=== PATIENT | female | born 2000 | race Caucasian/White ===

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

== ENCOUNTER → 2021-03-25 | Outpatient (REF) | payer BC | LOC: M LAB REF 16:59 | PROVIDERS: ATTEND Obstetrics & Gynecology | DX: Z36.89 Encounter for other specified antenatal screening (principal) ==

== ENCOUNTER → 2022-04-05 | Outpatient (REF) | payer BC ==
[~2022-04-05] MED LIST: ACET1TAB55 PO; IBUP80TA PO; PRENCHW PO; PRENTAB9 PO
[2022-04-05 18:18] LABS: HCG, SERUM QUANTITATIVE 466 MIU/ML
[2022-04-05 19:57] LABS: HEPATITIS C VIRUS ABY INDEX < 0.0 INDEX (<0.8); HIV 1&2 SCREEN CENTAUR NEGATIVE (NEGATIVE)
== END ==
LOC: M LAB REF 16:12
PROVIDERS: ATTEND Obstetrics & Gynecology
DX: O36.80X0 Pregnancy with inconclusive fetal viability, not applicable or unspecified (principal); R30.0 Dysuria

== ENCOUNTER → 2024-03-08 | Outpatient (REF) | payer BC ==
[2024-03-08 15:19] LABS: Trichomonas vaginalis (AMP) NOT DETECTED (NEGATIVE)
[2024-03-08 15:43] LABS: GC DNA AMPLIFICATION NEGATIVE (NEGATIVE)
== END ==
LOC: M LAB REF 12:13
PROVIDERS: ATTEND Nurse Practitioner Family
DX: R30.0 Dysuria (principal); Z11.3 Encounter for screening for infections with a predominantly sexual mode of transmission

== ENCOUNTER → 2024-10-08 | Outpatient (REF) | payer BC | LOC: M LAB REF 12:32 | PROVIDERS: ATTEND Obstetrics & Gynecology | DX: R30.0 Dysuria (principal) ==